=== PATIENT | female | born 1960 | race Caucasian/White ===

== ENCOUNTER 2018-01-27 10:27 | Inpatient (IN) | payer OTHER ==
[~2018-01-27] VITALS: Ht 154.9 cm; Wt 78.0 kg
[~2018-01-27 10:27] MED LIST: ALEVE220 MG PO; ASPIR 8181 M1 PO; ATORVASTATIN CA40 MG PO; ESCITALOPRAM OX10 MG PO; GLIPIZIDE XL10 MG PO; TYLENOL EXTRA500 MG PO
[2018-01-27 11:10] LABS: HEMATOCRIT 46.2 % (36.0-46.0); HEMOGLOBIN 15.4 G/DL (11.9-15.5); MCH 30.6 PG (29.0-34.0); MCHC 33.3 G/DL (30.0-36.0); MCV 91.8 FL (83-99); PLATELET COUNT 193 K/uL (156-360); RBC DIS.WIDTH-CV 14.5 % (11.8-14.6); RBC DIS.WIDTH-SD 48.3 % (39-53); RED BLOOD COUNT 5.03 M/uL (3.80-5.20); WHITE BLOOD COUNT 8.6 K/uL (4.1-10.2)
[2018-01-27 11:24] LABS: CHLORIDE 107 mEq/L (99-109); POTASSIUM 3.9 mEq/L (3.7-5.4); SODIUM 140 mEq/L (136-147)
[2018-01-27 11:25] LABS: GLUCOSE 249 mg/dL (70-99)
[2018-01-27 11:29] LABS: CREATININE 0.9 mg/dL (0.6-1.3); GFR ESTIMATE (CALCULATED) > 59 mL/min/
[2018-01-27 11:30] LABS: UREA NITROGEN (BUN) 18 mg/dL (9-23)
[2018-01-27 11:35] LABS: TROP-I INTERPRETATION NEGATIVE; TROPONIN-I 0.02 ng/mL (0.0-0.30)
[2018-01-27] MEDS ORDERED: LO-DOSE ASPIRIN81 M2 PO (14:07)
[2018-01-27] MEDS ORDERED: LOPRESSOR50 MG PO (14:08)
[2018-01-27] MEDS ORDERED: CHEWABLE-VITE1 EACH PO (14:09)
[2018-01-27] MEDS ORDERED: TYLENOL REGULA325 MG PO (14:09)
[2018-01-27 15:03] LABS: APPEARANCE CLEAR ((CLEAR)); BILIRUBIN NEGATIVE; BLOOD NEGATIVE; COLOR YELLOW ((YELLOW)); GLUCOSE (STRIP) 50; KETONES 5; LEUKOCYTES NEGATIVE; NITRITE NEGATIVE; PROTEIN (STRIP) 30; SPECIFIC GRAVITY 1.034 (1.000-1.030); UCUL ADDED? NO; UROBILINOGEN 0.2 MG/DL (0.2-1.0)
[2018-01-27 15:47] VITALS: BP 132/90
[2018-01-27 16:49] LABS: TROP-I INTERPRETATION NEGATIVE; TROPONIN-I 0.02 ng/mL (0.0-0.30)
[2018-01-27 20:22] VITALS: BP 113/81
[2018-01-27 23:47] VITALS: BP 117/78
[2018-01-28 01:30] LABS: TROP-I INTERPRETATION NEGATIVE; TROPONIN-I 0.02 ng/mL (0.0-0.30)
[2018-01-28 03:55] VITALS: BP 110/76
[2018-01-28 06:12] LABS: HEMATOCRIT 43.4 % (36.0-46.0); HEMOGLOBIN 14.5 G/DL (11.9-15.5); MCH 30.4 PG (29.0-34.0); MCHC 33.4 G/DL (30.0-36.0); PLATELET COUNT 172 K/uL (156-360); RBC DIS.WIDTH-CV 14.6 % (11.8-14.6); RBC DIS.WIDTH-SD 48.6 % (39-53); RED BLOOD COUNT 4.77 M/uL (3.80-5.20); WHITE BLOOD COUNT 6.7 K/uL (4.1-10.2)
[2018-01-28 06:13] LABS: INTER. NORMALIZED RATIO 1.2
[2018-01-28 06:26] LABS: TROP-I INTERPRETATION NEGATIVE; TROPONIN-I 0.01 ng/mL (0.0-0.30)
[2018-01-28 06:36] LABS: ALBUMIN 3.3 G/DL (3.2-4.8); ALKALINE PHOSPHATASE 90 IU/L (3-129); ALT (GPT) 59 IU/L (3-49); AST (GOT) 26 IU/L (2-34); CHLORIDE 103 MEQ/L (99-109); CREATININE 0.7 MG/DL (0.6-1.3); GFR ESTIMATE (CALCULATED) > 59 mL/min/; GLUCOSE 350 mg/dL (70-99); MAGNESIUM 1.8 mg/dl (1.3-2.7); POTASSIUM 3.8 MEQ/L (3.7-5.4); SODIUM 136 MEQ/L (136-147); TOTAL BILIRUBIN 0.5 MG/DL (0.0-1.0); TOTAL PROTEIN 5.2 G/DL (6.4-8.3); UREA NITROGEN (BUN) 17 mg/dL (9-23)
[2018-01-28 07:18] VITALS: BP 113/74
[2018-01-28 12:10] VITALS: BP 106/70
[2018-01-28 14:18] LABS: HEMOGLOBIN A1c (GLYCOHEMOGLOB) 10.9 % (Below 5.7)
[2018-01-28 15:06] VITALS: BP 99/66
[2018-01-28 19:19] VITALS: BP 105/70
[2018-01-29] VITALS (7 sets, daily range): BP systolic 80–112; BP diastolic 52–78
[2018-01-29 06:46] LABS: CHLORIDE 101 MEQ/L (99-109); GFR ESTIMATE (CALCULATED) > 59 mL/min/; GLUCOSE 243 mg/dL (70-99); POTASSIUM 3.8 MEQ/L (3.7-5.4); SODIUM 139 MEQ/L (136-147); UREA NITROGEN (BUN) 19 mg/dL (9-23)
[2018-01-29 23:28] LABS: CHLORIDE 101 mEq/L (99-109); POTASSIUM 3.8 mEq/L (3.7-5.4); SODIUM 138 mEq/L (136-147)
[2018-01-29 23:29] LABS: MAGNESIUM 1.9 mg/dL (1.3-2.7)
[2018-01-29 23:30] LABS: GLUCOSE 233 mg/dL (70-99)
[2018-01-29 23:34] LABS: GFR ESTIMATE (CALCULATED) > 59 mL/min/; PHOSPHORUS 5.9 mg/dL (2.5-4.9)
[2018-01-29 23:35] LABS: UREA NITROGEN (BUN) 20 mg/dL (9-23)
[2018-01-29 23:37] LABS: TROP-I INTERPRETATION NEGATIVE; TROPONIN-I 0.02 ng/mL (0.0-0.30)
[2018-01-30 03:53] VITALS: BP 112/82
[2018-01-30 06:50] LABS: CHLORIDE 102 MEQ/L (99-109); GFR ESTIMATE (CALCULATED) > 59 mL/min/; GLUCOSE 158 mg/dL (70-99); POTASSIUM 4.1 MEQ/L (3.7-5.4); SODIUM 142 MEQ/L (136-147); UREA NITROGEN (BUN) 16 mg/dL (9-23)
[2018-01-30 07:29] VITALS: BP 117/59
[2018-01-30 07:32] VITALS: BP 100/60
[2018-01-30 11:38] VITALS: BP 109/64
[2018-01-30 16:17] VITALS: BP 114/73
[2018-01-30 19:30] VITALS: BP 98/51
[2018-01-30 21:04] LABS: ACTIVATED PROTEIN C RESIST+ 4.8 ratio (>=2.1); DRVVT Mixing Study Interp Not Indicated (()); FACTOR VIII ACTIVITY+ 225 % (50-180); PROTEIN C FUNCTIONAL ACTIVITY+ 113 % (70-180); PTT-LA 29 sec (<=40); Protein S, Free 115 % normal (50-147); Thrombosis Consult Level Limited (()); dRVVT Screen 35 sec (<=45)
[2018-01-31] VITALS: BP 117/72
[2018-01-31 04:10] VITALS: BP 105/54
[2018-01-31 07:28] LABS: CHLORIDE 104 MEQ/L (99-109); CREATININE 0.9 MG/DL (0.6-1.3); GFR ESTIMATE (CALCULATED) > 59 mL/min/; GLUCOSE 133 mg/dL (70-99); POTASSIUM 4.2 MEQ/L (3.7-5.4); SODIUM 141 MEQ/L (136-147); UREA NITROGEN (BUN) 15 mg/dL (9-23)
[2018-01-31 09:51] VITALS: BP 112/73
[2018-01-31 12:16] VITALS: BP 124/81
[2018-01-31 15:02] VITALS: BP 108/74
[2018-01-31 20:00] VITALS: BP 108/73
[2018-02-01] VITALS: BP 108/68
[2018-02-01 04:00] VITALS: BP 105/65
[2018-02-01 06:45] LABS: CHLORIDE 104 MEQ/L (99-109); CREATININE 0.8 MG/DL (0.6-1.3); GFR ESTIMATE (CALCULATED) > 59 mL/min/; GLUCOSE 188 mg/dL (70-99); POTASSIUM 4.6 MEQ/L (3.7-5.4); SODIUM 138 MEQ/L (136-147); UREA NITROGEN (BUN) 18 mg/dL (9-23)
[2018-02-01 07:15] VITALS: BP 119/78
[2018-02-01 11:02] VITALS: BP 110/70
[2018-02-01 14:56] VITALS: BP 110/62
[2018-02-01 19:39] VITALS: BP 112/74
[2018-02-02] VITALS (7 sets, daily range): BP systolic 106–124; BP diastolic 67–82
[2018-02-02 12:28] LABS: ANTITHROMBIN III ACTIVITY+ 118 % activi (80-120)
[2018-02-03 03:49] VITALS: BP 108/72
[2018-02-03 06:24] LABS: HEMATOCRIT 42.7 % (36.0-46.0); HEMOGLOBIN 13.9 G/DL (11.9-15.5); MCH 30.7 PG (29.0-34.0); MCHC 32.6 G/DL (30.0-36.0); MCV 94.3 FL (83-99); PLATELET COUNT 151 K/uL (156-360); RBC DIS.WIDTH-CV 14.3 % (11.8-14.6); RBC DIS.WIDTH-SD 49.1 % (39-53); RED BLOOD COUNT 4.53 M/uL (3.80-5.20)
[2018-02-03 06:40] LABS: CHLORIDE 108 MEQ/L (99-109); CREATININE 0.9 MG/DL (0.6-1.3); GFR ESTIMATE (CALCULATED) > 59 mL/min/; GLUCOSE 239 mg/dL (70-99); POTASSIUM 4.6 MEQ/L (3.7-5.4); SODIUM 139 MEQ/L (136-147); UREA NITROGEN (BUN) 18 mg/dL (9-23)
[2018-02-03 07:19] VITALS: BP 113/73
[2018-02-03] MEDS ORDERED: FUROSEMIDE40 MG PO (13:26)
[2018-02-03] MEDS ORDERED: LEVEMIR FL100 UNIT/1 SC (13:26)
[2018-02-03] MEDS ORDERED: LISINOPRIL10 MG PO (13:26)
[2018-02-03] MEDS ORDERED: LOPRESSOR25 MG PO (13:26)
[2018-02-03 15:10] VITALS: BP 144/102
[2018-02-03] MEDS ORDERED: NICOTINE PATCH1 EAC2 TD (15:16)
[2018-02-03] MEDS ORDERED: ELIQUIS5 MG PO (15:55)
== END 2018-02-03 18:42 | disposition home health service (06) | DRG 286 ==
LOC: EME 10:27 → 5SOUTH 13:42 → EDOF 13:42 → 2SOUTH 13:42 → ENRESERV 13:43 → 5SOUTH 15:32 → ENRESERV 02-03 12:18 → 2SOUTH 02-03 12:18 → ENRESERV 02-03 13:37 → 4EAST 02-03 15:09
PROVIDERS: Hospitalist; Internal Medicine; Internal Medicine Cardiovascular Disease; Physician Assistant
DX: I11.0 Hypertensive heart disease with heart failure (principal); I50.21 Acute systolic (congestive) heart failure; J96.01 Acute respiratory failure with hypoxia; I26.99 Other pulmonary embolism without acute cor pulmonale; I25.5 Ischemic cardiomyopathy; I82.412 Acute embolism and thrombosis of left femoral vein; I82.4Z2 Acute embolism and thrombosis of unspecified deep veins of left distal lower extremity; I25.82 Chronic total occlusion of coronary artery; I25.810 Atherosclerosis of coronary artery bypass graft(s) without angina pectoris; I25.10 Atherosclerotic heart disease of native coronary artery without angina pectoris; E11.65 Type 2 diabetes mellitus with hyperglycemia; E78.5 Hyperlipidemia, unspecified; I34.0 Nonrheumatic mitral (valve) insufficiency; I27.20 Pulmonary hypertension, unspecified; F17.210 Nicotine dependence, cigarettes, uncomplicated; E66.9 Obesity, unspecified; Z79.01 Long term (current) use of anticoagulants; Z79.82 Long term (current) use of aspirin; Z85.41 Personal history of malignant neoplasm of cervix uteri; Z91.14 Patient's other noncompliance with medication regimen; Z91.19 Patient's noncompliance with other medical treatment and regimen; Z95.1 Presence of aortocoronary bypass graft; Z68.32 Body mass index [BMI] 32.0-32.9, adult
CPT/HCPCS: 71275; 78452; 80048; 80048 91; 80053; 81003; 81240 90; 82948; 83036; 83090 90; 83605; 83735; 83880; 84100; 84484; 85027; 85240 90; 85300 90; 85303 90; 85305 90; 85306 90; 85307 90; 85379; 85610; 85613 90; 85730 90; 86146 90; 86147 90; 87040; 93005; 93017; 93306; 93970; 94640; 99281; 99284; A9500; C1750; C1769; C1887; C1894; J1644; J1650; J1815; J1940; J2250; J2785